=== PATIENT | male | born 1955 | race Caucasian/White ===

== ENCOUNTER 2020-01-02 15:09 | Emergency (ER) | payer BC ==
--- NOTE | 2020-01-02 15:12 | ED Physician Documentation ---
PD HPI MALE - Stated complaint Stated Complaint: MALE - History obtained from History obtained from: Patient - History of Present Illness Timing - onset: Today (unable to urinate), Last night (some blood in urine last night) Timing - duration: Days (1/2) Timing - details: Abrupt onset, Still present Associated symptoms: Hematuria Recently seen: Surgery (He had laser prostate surgery transurethral by Dr. Motta in [place] 4 days ago. He had a Hernandez catheter in for a day until the blood cleared and then it was removed. He was doing okay until last evening when he noticed some blood and then unable to urinate today) Review of Systems Constitutional: denies: Fever Respiratory: denies: Cough GI: denies: Nausea, Vomiting : reports: Hematuria PD PAST MEDICAL HISTORY - Past Medical History Cardiovascular: None Respiratory: None : Benign prostate hypertrophy (with TURP laser Dr. Motta in [place] 4 days ago. ), Kidney stones - Past Surgical History Past Surgical History: No - Present Medications Home Medications: Ambulatory Orders Medication Instructions Recorded Confirmed Finasteride 5 mg PO DAILY 08/04/14 08/04/14 Oxycodone HCl/Acetaminophen 1 - 2 each PO Q6H PRN #20 tablet 08/04/14 [Percocet 5-325 mg Tablet] Promethazine [Phenergan] 25 - 50 mg PO Q6H PRN #20 tab 08/04/14 dexAMETHasone [Decadron] 4 mg PO DAILY #5 tablet 08/04/14 - Allergies Allergies/Adverse Reactions: Allergies Allergy/AdvReac Type Severity Reaction Status Date / Time No Known Drug Allergies Allergy Verified 08/04/14 04:10 - Social History Does the pt smoke?: No Smoking Status: Never smoker Does the pt drink ETOH?: No Does the pt have substance abuse?: No - Immunizations Immunizations are current?: Yes - POLST Patient has POLST: No PD ED PE NORMAL - Vitals Vital signs reviewed: Yes - General General: Alert and oriented X 3, Well developed/nourished - Cardiac Cardiac: RRR, No murmur - Respiratory Respiratory: Clear bilaterally - Abdomen Abdomen: Normal bowel sounds, Soft, Other (Distended in the suprapubic area consistent with bladder fullness. Upper abdomen not tender.) - Male Male : Other (external genitalia) - Derm Derm: Normal color, Warm and dry Results - Vitals Vitals: Vital Signs - 24 hr 01/02/20 01/02/20 15:15 15:19 Temperature 36.8 C Heart Rate 109 H 100 Respiratory 20 20 Rate Blood Pressure 165/93 H 148/88 H O2 Saturation 100 100 Oxygen O2 Source Room air PD MEDICAL DECISION MAKING - ED course Complexity details: re-evaluated patient (The continuous irrigation is now running clear without any blood. We will send him home with a three-way which she knows how to use as he did that postoperatively and irrigate periodically. To contact Dr. Motta on Saturday), considered differential (Acute urinary retention with hematuria post TURP presumably from blood clots clogging the way. We will have nursing inserted a three-way Hernandez and irrigate the bladder till clear.), d/w patient Departure - Departure Clinical Impression: Acute urinary retention, Status post recent transurethral resection of prostate, Gross hematuria Condition: Stable Record reviewed to determine appropriate education?: Yes Instructions: ED Catheter Care Hernandez Follow-Up: Hawk Motta CM, MD [Physician No Access] - Comments: Keep the catheter in place. Irrigated it several times daily and if it seems to clog, similar to how you did after surgery. Contact Dr. Motta on Saturday. Continue usual medicines.
[2020-01-02] MEDS ORDERED: LIDOCAINE 2% URO-JET 5 ML SYRINGE UR STA (15:25)
[2020-01-02 16:47] VITALS: BP 148/86
== END 2020-01-02 16:47 | disposition home or self-care (01) ==
LOC: ED 15:09
DX: R31.0 Gross hematuria (principal); R33.9 Retention of urine, unspecified; Z90.79 Acquired absence of other genital organ(s)
CPT/HCPCS: 51700; 99284

== ENCOUNTER 2020-09-28 09:32 | Outpatient (CLI) | payer BC ==
[2020-09-28 14:56] LABS: PSA FREE 0.53 ng/mL (0.16-2.81)
[2020-09-28 14:57] LABS: PSA TOTAL 3.58 ng/mL (0.000-2.000)
== END 2020-09-28 09:33 | disposition home or self-care (01) ==
LOC: LAB.S 09:32
PROVIDERS: ATTEND Urology
DX: N40.1 Benign prostatic hyperplasia with lower urinary tract symptoms (principal); N13.8 Other obstructive and reflux uropathy
CPT/HCPCS: 36415; 84153; 84154

== ENCOUNTER 2021-11-07 10:58 | Outpatient (CLI) | payer MEDICARE ==
[2021-11-07 14:37] LABS: ALBUMIN 4.3 g/dL (3.2-5.5); ALBUMIN/GLOBULIN RATIO 1.8 (1.0-2.2); ALKALINE PHOSPHATASE 41 IU/L (42-121); ALT ALANINE AMINOTRANSFERASE 20 IU/L (10-60); AST ASPARTATE AMINOTRANSFERASE 25 IU/L (10-42); BILIRUBIN,TOTAL 0.9 mg/dL (0.2-1.0); BUN - BLOOD UREA NITROGEN 28 mg/dL (6-20); CALCIUM 9.2 mg/dL (8.5-10.3); CARBON DIOXIDE - CO2 27 mmol/L (21-32); CHLORIDE 102 mmol/L (101-111); CHOL/HDL RATIO 2.9 (<5.0); CHOLESTEROL 218 mg/dL; CREATININE 1.1 mg/dL (0.6-1.2); GFR - MDRD 67 (>89); GLUCOSE 95 mg/dL (70-100); HDL CHOLESTEROL 76 mg/dL; LDL CHOLESTEROL,CALCULATED 128 mg/dL; LDL/HDL RATIO 1.7 (<3.6); POTASSIUM 4.1 mmol/L (3.5-5.0); SODIUM 137 mmol/L (135-145); TOTAL PROTEIN 6.7 g/dL (6.7-8.2); TRIGLYCERIDES 72 mg/dL; VLDL CHOLESTEROL 14 mg/dL
[2021-11-07 14:51] LABS: PSA FREE 0.65 ng/mL (0.16-2.81)
[2021-11-07 14:52] LABS: PSA TOTAL 4.26 ng/mL (0.000-2.000)
[2021-11-08 04:09] LABS: HCV AB <0.1 s/co ratio (0.0-0.9)
== END 2021-11-07 10:59 | disposition home or self-care (01) ==
LOC: LAB.S 10:58
PROVIDERS: ATTEND Nurse Practitioner Family
DX: N40.0 Benign prostatic hyperplasia without lower urinary tract symptoms (principal); Z13.1 Encounter for screening for diabetes mellitus; Z13.220 Encounter for screening for lipoid disorders; Z11.59 Encounter for screening for other viral diseases
CPT/HCPCS: 36415; 80053; 80061; 83721; 84153; 84154; 86803

== ENCOUNTER 2022-12-14 08:00 | Outpatient (CLI) | payer MEDICARE ==
[2022-12-14 14:55] LABS: BILIRUBIN,URINE NEGATIVE (NEGATIVE); GLUCOSE, URINE (UA) NEGATIVE (NEGATIVE); KETONES,URINE (UA) NEGATIVE (NEGATIVE); LEUKOCYTE ESTERASE, URINE MODERATE (NEGATIVE); NITRITE,URINE NEGATIVE (NEGATIVE); OCCULT BLOOD,URINE MODERATE (NEGATIVE); PH,URINE 5.5 PH (5.0-7.5); PROTEIN,URINE 30 mg/dL (NEGATIVE); UROBILINOGEN,URINE 0.2 (NORMAL) E.U./dL (NORMAL)
[2022-12-14 15:01] LABS: CLARITY,URINE CLOUDY (CLEAR)
[2022-12-14 15:05] LABS: BACTERIA,URINE Few /HPF (None Seen); SQUAMOUS EPITHELIAL CELL,UR NONE SEEN (<= Few); WBC,URINE >25 /HPF (0-3)
== END 2022-12-14 23:59 | disposition home or self-care (01) ==
LOC: LAB.S 08:00
PROVIDERS: ATTEND Physician Assistant Medical
DX: R31.9 Hematuria, unspecified (principal); R30.0 Dysuria
CPT/HCPCS: 81001; 87086

== ENCOUNTER 2023-01-29 07:36 | Outpatient (CLI) | payer MEDICARE ==
[2023-01-29 15:34] LABS: CREATININE 1.1 mg/dL (0.6-1.3)
== END 2023-01-29 07:37 | disposition home or self-care (01) ==
LOC: LAB.S 07:36
PROVIDERS: ATTEND Registered Nurse
DX: R31.0 Gross hematuria (principal)
CPT/HCPCS: 36415; 82565

== ENCOUNTER 2023-02-06 09:03 | Outpatient (CLI) | payer MEDICARE ==
[2023-02-06] MEDS ORDERED: iohexoL-300 100 ML VIAL IVP ONE (09:28)
--- NOTE | 2023-02-07 09:23 | CT Report ---
PROCEDURE: IVP INDICATIONS: HEMATURIA CONTRAST: 140ml Omni 300 TECHNIQUE: After the administration of intravenous contrast, 5 mm thick sections acquired from the diaphragms to the symphysis. 5 mm thick coronal and sagittal reformats were acquired. For radiation dose reducti on, the following was used: automated exposure control, adjustment of mA and/or kV according to jazmin ent size. COMPARISON: None. FINDINGS: Image quality: Excellent. Urinary system: Both kidneys are normal in size. No hydronephrosis or nephrolithiasis on pre-contras t images. Left renal simple cysts. No suspicious masses. The opacified renal calyces and ureters taylor ear normal, without filling defect. There is circumferential bladder wall thickening, greater than expected for degree of distention, whi ch may be related to enlarged prostate and suggestive of chronic bladder outlet obstruction. There is a large calcified bladder stone measuring 1.3 cm (HU 1414). No filling defect within the opacified b ladder. OTHER Lung bases and heart: Dependent atelectasis. Liver: No solid mass. Gallbladder and biliary tree: No radiopaque stones or wall thickening. No biliary dilation. Spleen: No splenomegaly. Pancreas: No pancreatic ductal dilation. Adrenals: No adrenal nodule. Bowel and peritoneum: No bowel distension. No pathologic free fluid. Abdominal Lymph nodes: No central or retroperitoneal adenopathy. Vessels: Unremarkable. Reproductive organs: Enlarged prostate. Pelvic Lymph nodes: Unremarkable. Bones: No aggressive osseous abnormality. Other: None. IMPRESSION: Calcified 13 mm bladder calculus. No nephrolithiasis or hydronephrosis. No evidence of malignancy. Circumferential bladder wall thickening, greater than expected for degree of distention, which may be related to enlarged prostate and suggestive of chronic bladder outlet obstruction Reviewed by: Claudia Tirado MD on 02/07/2023 9:21 AM PDT Approved by: Claudia Tirado MD on 02/07/2023 9:21 AM PDT Station ID: [id number]
== END 2023-02-06 09:04 | disposition home or self-care (01) ==
LOC: DI 09:03
PROVIDERS: ATTEND Registered Nurse
DX: N21.0 Calculus in bladder (principal); N40.0 Benign prostatic hyperplasia without lower urinary tract symptoms
CPT/HCPCS: 74178; Q9967

== ENCOUNTER 2024-02-02 06:49 | Emergency (ER) | payer MEDICARE ==
--- NOTE | 2024-02-02 07:26 | ED Physician Documentation ---
PD HPI HEENT - Stated complaint Stated Complaint: NOSE BLEED - Chief complaint Chief Complaint: Heent - History obtained from History obtained from: Patient - History of Present Illness Pain level max: 0 Pain level now: 0 Associated symptoms: Fever Recently seen: Not recently seen - Additional information Additional information: Patient is a 68-year-old male who presents to the emergency department with epistaxis this morning. Coming out of the left nare. He states that this is the third episode in about a week. No fevers. Not on blood thinners. Does not take any medications at home. He is a retired rn gynecology. No trauma. Review of Systems Constitutional: denies: Fever PD PAST MEDICAL HISTORY - Past Medical History Past Medical History: Yes Cardiovascular: None Respiratory: None Endocrine/Autoimmune: None GI: None : Benign prostate hypertrophy, Kidney stones Psych: None Derm: None - Past Surgical History Past Surgical History: Yes - Present Medications Home Medications: Ambulatory Orders Medication Instructions Recorded Confirmed lisinopriL [Zestril] 5 mg PO DAILY #30 tablet 02/02/24 - Allergies Allergies/Adverse Reactions: Allergies Allergy/AdvReac Type Severity Reaction Status Date / Time No Known Drug Allergies Allergy Verified 02/02/24 06:59 - Social History Does the pt smoke?: No Smoking Status: Never smoker Does the pt drink ETOH?: No Does the pt have substance abuse?: No - Immunizations Immunizations are current?: Yes - POLST Patient has POLST: No PD ED PE NORMAL - Vitals Vital signs reviewed: Yes - General General: Alert and oriented X 3, No acute distress - HEENT HEENT: Moist mucous membranes, Other (Dried blood in the bilateral nares, no active bleeding) - Neck Neck: Supple, no meningeal sign - Derm Derm: Warm and dry - Neuro Neuro: Alert and oriented X 3 Results - Vitals Vitals: Vital Signs - 24 hr 02/02/24 02/02/24 02/02/24 06:53 07:15 08:43 Temperature 36.5 C Heart Rate 57 L 58 L 54 L Respiratory 18 20 20 Rate Blood Pressure 191/101 H 180/115 H 176/101 H O2 Saturation 99 98 99 Oxygen O2 Source Room air PD Medical Decision Making - ED course Complexity details: considered differential, d/w patient, d/w family ED course: Afrin and tranexamic acid were atomized into the bilateral naris. There was no further bleeding in the emergency department. Observed for about an hour with no further bleeding. He is hypertensive, we will start him on a low-dose lisinopril to see if this helps with the epistaxis. There is no single spot to cauterize that is visible on intranasal examination. No indication for laboratory testing at this time. Recommend he follow-up with his PCP for further care. Patient counseled regarding signs and symptoms for which I believe and urgent re-evaluation would be necessary. Patient with good understanding of and agreement to plan and is comfortable going home at this time This document was made in part using voice recognition software. While efforts are made to proofread this document, sound alike and grammatical errors may occur. Departure - Departure Disposition: 01 Home, Self Care Clinical Impression: Epistaxis Hypertension Qualifiers: Hypertension type: unspecified Qualified Code(s): I10 - Essential (primary) hypertension Condition: Good Instructions: ED Nosebleed Follow-Up: DIAN SPENCER ARNP [Primary Care Provider] - [facility] [Provider Group] [facility] [Provider Group] Prescriptions: lisinopriL [Zestril] 5 mg PO DAILY #30 tablet Comments: Please follow-up with your doctor for further care. Please return if you worsen. Your prescriptions were sent to [facility] in [place]. Was also recom mended to use Afrin twice daily for the next 2 to 3 days. If you have a recurrent nosebleed, please apply the nose clamp for approximately 15 minutes and then recheck. Please return if the bleeding is unable to be controlled at home. You can follow-up with an ENT as well. Forms: PCP List Discharge Date/Time: 02/02/24 08:57
[2024-02-02] MEDS: OXYMETAZOLINE HCL 100 SPRAYS BOTTLE NAS STA (07:30)
[2024-02-02] MEDS: TRANEXAMIC ACID 1,000 MG/10 ML VIAL NAS STA (07:31)
[2024-02-02] MEDS: lisinopriL 5 MG TABLET PO STA (08:18)
[2024-02-02 08:46] VITALS: BP 176/101; O2SAT 99
== END 2024-02-02 08:57 | disposition home or self-care (01) ==
LOC: ED 06:49
DX: R04.0 Epistaxis (principal); R03.0 Elevated blood-pressure reading, without diagnosis of hypertension
CPT/HCPCS: 99283; A9270